=== PATIENT | male | born 1980 | race Caucasian/White ===

== ENCOUNTER 2018-04-04 18:08 | Emergency (ER) | payer MEDICAID ==
[~2018-04-04] VITALS: Ht 177.8 cm; Wt 72.7 kg
[2018-04-04 18:12] VITALS: Ht 177.8 cm; Wt 72.7 kg
[2018-04-04] MEDS ORDERED: ZYLOPRIM100 MG (18:13)
[2018-04-04] MEDS ORDERED: CYCLOBENZAPRINE10 MG (18:13)
[2018-04-04] MEDS ORDERED: KLONOPIN0.5 MG (18:13)
[2018-04-04] MEDS ORDERED: FAMOTIDINE10 MG (18:13)
[2018-04-04] MEDS ORDERED: NORCO 10-325 TA1 TAB (18:14)
[2018-04-04] MEDS ORDERED: XIFAXAN200 MG (18:14)
[2018-04-04] MEDS ORDERED: CHRONULAC30 ML (18:14)
[2018-04-04 19:31] LABS: APPEARANCE CLEAR (CLEAR); BILIRUBIN NEGATIVE (NEGATIVE); COLOR YELLOW (YELLOW); GLUCOSE NEGATIVE (NEGATIVE); KETONE NEGATIVE (NEGATIVE); NITRITE NEGATIVE (NEGATIVE); PROTEIN NEGATIVE (NEGATIVE); SPECIFIC GRAVITY 1.005 (1.005-1.020); UROBILINOGEN NORMAL (NORMAL)
[2018-04-04 19:46] LABS: UDS - AMPHET NEGATIVE QUAL (NEGATIVE); UDS - BARB NEGATIVE QUAL (NEGATIVE); UDS - BENZO POSITIVE QUAL (NEGATIVE); UDS - COCAINE NEGATIVE QUAL (NEGATIVE); UDS - OPIATE POSITIVE QUAL (NEGATIVE); UDS - PCP NEGATIVE QUAL (NEGATIVE); UDS - THC POSITIVE QUAL (NEGATIVE)
[2018-04-04 19:48] LABS: HEMATOCRIT 47.9 % (42.0-54.0); MCH 33.2 pg (26.0-34.0); MCHC 35.5 g/dL (31.0-37.0); MCV 93.6 fL (80.0-100.0); MEAN PLATELET VOLUME 10.2 fL (7.4-10.4); PLATELET COUNT 243 10x3/uL (130-400); RBC 5.12 10x6/uL (4.20-6.10); RDW 13.1 % (11.5-14.5)
[2018-04-04 20:03] LABS: ALKALINE PHOSPHATASE 149 U/L (46-116); ALT (SGPT) 65 U/L (10-68); BILIRUBIN - TOTAL 0.32 mg/dL (0.2-1.3); CALC OSMOLALITY 280 mosm/kg (275-300); CALCIUM 9.1 mg/dL (8.5-10.1); CARBON DIOXIDE 27.9 mmol/L (21.0-32.0); CHLORIDE - SERUM 105 mmol/L (98-107); CREATININE - SERUM 0.8 mg/dL (0.6-1.3); GLUCOSE 86 mg/dL (74-106); PROTEIN - SERUM 7.9 g/dL (6.4-8.2); SODIUM 143 mmol/L (136-145); UREA NITROGEN 5 mg/dL (7-18); eGFR NON AFRICAN AMERICAN > 90 mL/min (90-120)
[2018-04-04 20:25] LABS: EOSINOPHILS 2 % (0-7); LYMPHOCYTES 69 % (15-50); MONOCYTES 1 % (2-11); NEUTROPHILS 28 % (40-80); PLATELET ESTIMATE NORMAL; TARGET CELLS 1+
[2018-04-04 22:02] VITALS: BP 129/79
== END 2018-04-04 22:02 | disposition home or self-care (01) ==
LOC: D.ER 18:08
PROVIDERS: Emergency Medicine
DX: K74.60 Unspecified cirrhosis of liver (principal); F41.9 Anxiety disorder, unspecified